=== PATIENT | male | born 1985 | race Caucasian/White ===

== ENCOUNTER 2022-09-10 13:25 | Emergency (ER) | payer OTHER ==
[2022-09-10] MEDS ORDERED: Cephalexin 500 MG Cap ONE (14:30)
== END 2022-09-10 14:58 | disposition home or self-care (01) ==
LOC: LB.ED 13:25
DX: S61.021A Laceration with foreign body of right thumb without damage to nail, initial encounter (principal); W45.8XXA Other foreign body or object entering through skin, initial encounter
CPT/HCPCS: 12041; 99282; A9270